=== PATIENT | female | born 1940 | race Caucasian/White ===

== ENCOUNTER 2017-10-18 18:46 | Emergency (ER) | payer SELFPAY ==
[~2017-10-18] VITALS: Ht 160 cm; Wt 54.5 kg
[2017-10-18] MEDS ORDERED: PROZ10 PO (18:48)
[2017-10-18] MEDS ORDERED: ABX (18:48)
[2017-10-18 18:49] VITALS: BP 147/79
== END 2017-10-18 19:54 | disposition left against medical advice (07) ==
LOC: EMS 18:50
DX: R11.2 Nausea with vomiting, unspecified (principal); Z53.21 Procedure and treatment not carried out due to patient leaving prior to being seen by health care provider